=== PATIENT | male | born 1955 | race American Indian/Alaskan Native ===

== ENCOUNTER 2022-04-03 00:42 | Emergency (ER) | payer MEDICAID, OTHER ==
[~2022-04-03] VITALS: Ht 172.7 cm; Wt 90.0 kg
[2022-04-03 00:52] VITALS: BP 126/77
== END 2022-04-03 13:15 | disposition left against medical advice (07) ==
LOC: EDBD 00:42 → ER 00:42
DX: M25.531 Pain in right wrist (principal); Z53.21 Procedure and treatment not carried out due to patient leaving prior to being seen by health care provider